=== PATIENT | female | born 1965 | race Caucasian/White ===

== ENCOUNTER 2017-06-28 10:49 | Emergency (ER) | payer BC, OTHER ==
[2017-06-28 11:13] VITALS: BP 128/75
--- NOTE | 2017-06-28 11:22 | ER Document Report ---
ED Oral Problem - General Chief Complaint: Sore Throat Stated Complaint: SORE THROAT Time Seen by Provider: 06/28/17 11:19 Mode of Arrival: Ambulatory Information source: Patient TRAVEL OUTSIDE OF THE [place] IN LAST 30 DAYS: No - HPI Patient complains to provider of: Sore throat - pt started with sore throat earlier this am - Related Data Allergies/Adverse Reactions: No Known Allergies Allergy (Verified 06/28/17 10:53) Past Medical History - General Information source: Patient - Social History Smoking Status: Never Smoker Cigarette use (# per day): No Chew tobacco use (# tins/day): No Smoking Education Provided: No Family History: None Review of Systems - Review of Systems Constitutional: No symptoms reported EENT: See HPI, Throat pain Cardiovascular: No symptoms reported Respiratory: No symptoms reported Gastrointestinal: No symptoms reported -: Yes All other systems reviewed and negative Physical Exam - Vital signs Vitals: Temp Pulse Resp BP Pulse Ox 100.5 F H 81 18 128/75 H 96 06/28/17 11:12 06/28/17 11:12 06/28/17 11:12 06/28/17 11:12 06/28/17 11:12 - General General appearance: Appears well In distress: None - HEENT Head: Normocephalic Ears: Normal Tympanic membrane: Normal Sinus: Normal Mouth/Lips: Normal Mucous membranes: Normal Pharynx: Erythema Neck: Anterior cervical chain - Respiratory Respiratory status: No respiratory distress Breath sounds: Normal - Cardiovascular Rhythm: Regular Heart sounds: Normal auscultation Course - Vital Signs Vital signs: Temp Pulse Resp BP Pulse Ox 100.5 F H 81 18 128/75 H 96 06/28/17 11:12 06/28/17 11:12 06/28/17 11:12 06/28/17 11:12 06/28/17 11:12 Discharge - Discharge Clinical Impression: Pharyngitis Qualifiers: Pharyngitis/tonsillitis etiology: unspecified etiology Qualified Code(s): J02.9 - Acute pharyngitis, unspecified Condition: Stable Disposition: HOME, SELF-CARE Instructions: Sore Throat ([facility]), Penicillin V K ([facility]) Additional Instructions: rest, take meds as prescribed, return if worse Prescriptions: Amoxicillin Trihydrate [Amoxil 500 mg Capsule] 500 mg PO TID #30 capsule Referrals: GUNNAR GARCIA MD [ACTIVE STAFF] - Follow up as needed
== END 2017-06-28 11:21 | disposition home or self-care (01) ==
LOC: ER 10:49
DX: J02.9 Acute pharyngitis, unspecified (principal)
CPT/HCPCS: 99282